=== PATIENT | female | born 1975 | race Asian ===

== ENCOUNTER 2022-06-27 09:58 | Outpatient (CLI) | payer BC ==
[~2022-06-27 09:58] MED LIST: ADIPEX PO; AMBIEN5 MG PO; BONTRIL PO; HYDR25TA60 PO; JANUVIA100 MG PO; METF100038 OR
== END 2022-06-27 19:16 | disposition home or self-care (01) ==
LOC: RAD 09:58
PROVIDERS: ATTEND Nurse Practitioner
DX: Z01.818 Encounter for other preprocedural examination (principal)